=== PATIENT | female | born 1985 | race African-American/Black ===

== ENCOUNTER → 2019-09-19 | Emergency (ER) | payer SELFPAY ==
[~2019-09-19] VITALS: Ht 167.6 cm; Wt 99.8 kg
[~2019-09-19] MED LIST: SODIUM CHLORIDE 0.9% 1,000 ML IVB ONE
[2019-09-19 11:19] LABS: Basophils # (auto) 0 10 ^3/uL (0-0.2); Basophils % (auto) 0.4 % (0.0-2.0); Eosinophils # (auto) 0 10 ^3/uL (0-0.8); Eosinophils % (auto) 0.4 % (0.0-7.0); Hematocrit 35.7 % (36.0-46.0); Hemoglobin 11.9 g/dL (12.2-16.2); Lymphocytes # (auto) 1.2 10 ^3/uL (0.4-5.4); Mean Corpuscular Hemoglobin 27.5 pg (28.0-32.0); Mean Corpuscular Hgb Conc. 33.2 g/dL (32.0-36.0); Mean Corpuscular Volume 82.9 fL (80.0-100.0); Monocytes # (auto) 0.5 10 ^3/uL (0-1.3); Neutrophils % (auto) 78.2 % (37.0-80.0); Nucleated Red Blood Cells % 0.1 %; Platelet Count (auto) 260 10^3/uL (140-450); Red Blood Cells 4.31 10^6/uL (4.0-5.20); Red Cell Distribution Width 14.1 % (11.8-14.3); White Blood Cell 7.7 10^3/uL (4.4-10.8)
[2019-09-19 11:35] LABS: Urine Bacteria NONE SEEN /hpf (None Seen); Urine Blood Negative /uL (Negative); Urine Specific Gravity 1.025 (1.001-1.035); Urine WBC 1 /hpf (0 - 5)
[2019-09-19 11:37] LABS: Albumin 2.7 g/dL (3.4-5.0); Calcium 8.4 mg/dL (8.5-10.1); Potassium 3.8 mmol/L (3.5-5.1)
[2019-09-19 11:40] LABS: Bilirubin, Total 0.2 mg/dL (0.2-1.0); Total Protein 6.9 g/dL (6.4-8.2)
[2019-09-19 13:50] VITALS: BP 162/90
== END | disposition home or self-care (01) ==
LOC: ER 10:21
DX: O20.0 Threatened abortion (principal); O21.8 Other vomiting complicating pregnancy; Z3A.01 Less than 8 weeks gestation of pregnancy
CPT/HCPCS: 36415; 76801; 80053; 81001; 83690; 84702; 85025; 96360

== ENCOUNTER → 2019-11-11 | Emergency (ER) | payer MEDICAID ==
[~2019-11-11] VITALS: Ht 167.6 cm; Wt 90.7 kg
[~2019-11-11] MED LIST changes: +InsuLIN REG 1unit/0.01ml Soln (100units/ml) IV ONE; +LABETALOL HCL 5 MG/ML 4ML SYRINGE IV ONE; +SODIUM CHLORIDE 0.9% 1,000 ML IV ONE
[2019-11-11 01:04] LABS: Urine Bacteria FEW /hpf (None Seen); Urine Blood Negative /uL (Negative); Urine WBC <1 /hpf (0 - 5)
[2019-11-11 01:33] LABS: Basophils # (auto) 0.1 10 ^3/uL (0-0.2); Eosinophils # (auto) 0 10 ^3/uL (0-0.8); Eosinophils % (auto) 0.6 % (0.0-7.0); Hematocrit 35.4 % (36.0-46.0); Hemoglobin 11.6 g/dL (12.2-16.2); Lymphocytes # (auto) 1.8 10 ^3/uL (0.4-5.4); Lymphocytes % (auto) 23.5 % (10.0-50.0); Mean Corpuscular Hemoglobin 27.2 pg (28.0-32.0); Mean Corpuscular Hgb Conc. 32.7 g/dL (32.0-36.0); Mean Corpuscular Volume 83.2 fL (80.0-100.0); Monocytes # (auto) 0.4 10 ^3/uL (0-1.3); Monocytes % (auto) 5.4 % (0.0-12.0); Neutrophils # (auto) 5.3 10 ^3/uL (1.6-8.6); Neutrophils % (auto) 69.5 % (37.0-80.0); Nucleated Red Blood Cells % 0.2 %; Platelet Count (auto) 278 10^3/uL (140-450); Red Blood Cells 4.25 10^6/uL (4.0-5.20); White Blood Cell 7.6 10^3/uL (4.4-10.8)
[2019-11-11 01:38] LABS: Albumin 2.8 g/dL (3.4-5.0); Calcium 9.4 mg/dL (8.5-10.1); Potassium 4.4 mmol/L (3.5-5.1)
[2019-11-11 01:40] LABS: Total Protein 7.3 g/dL (6.4-8.2)
[2019-11-11 01:44] LABS: Bilirubin, Total 0.2 mg/dL (0.2-1.0)
[2019-11-11 03:04] LABS: BUN/Creatinine Ratio 18.9
[2019-11-11 13:00] VITALS: BP 168/98
== END | disposition short-term general hospital (02) ==
LOC: ER 00:11
DX: O24.419 Gestational diabetes mellitus in pregnancy, unspecified control (principal); O30.042 Twin pregnancy, dichorionic/diamniotic, second trimester; O16.2 Unspecified maternal hypertension, second trimester; Z3A.15 15 weeks gestation of pregnancy
CPT/HCPCS: 36415; 36600; 76805; 80053; 81001; 82010; 82805; 82962; 84702; 85025; 96374; 96375; 96376; 99285; J1815; J3490; J7030